=== PATIENT | female | born 1995 | race Caucasian/White ===

== ENCOUNTER → 2024-04-22 | Outpatient (CLI) | payer SELFPAY ==
[2024-04-22 15:49] LABS: Bacterial Vaginosis PCR Negative (NEGATIVE); Candida glabrata-krusei, PCR NOT DETECTED (NOT DETECT)
[2024-04-22 15:53] LABS: Candida Group, PCR DETECTED (NOT DETECT)
[2024-04-24 12:56] LABS: RPR SCREEN with Reflex Non-reactive (Nonreactive)
[2024-04-25 09:52] LABS: APTIMA MEDIA TYPE Unisex Swab; C. TRACHOMATIS BY TMA Positive (Negative); N. GONORRHOEAE BY TMA Negative (Negative); SPECIMEN SOURCE Vaginal
== END ==
LOC: LAB SHORT 13:35 → LAB 13:35
PROVIDERS: Physician Assistant
DX: L02.224 Furuncle of groin (principal); Z20.2 Contact with and (suspected) exposure to infections with a predominantly sexual mode of transmission
CPT/HCPCS: 86592; 87481; 87491; 87591; 87661; 87801